=== PATIENT | male | born 1980 | race Caucasian/White ===

== ENCOUNTER 2018-10-20 00:23 | Emergency (ER) | payer MEDICAID ==
[~2018-10-20] VITALS: Ht 172.7 cm; Wt 172.0 kg
[2018-10-20 00:25] VITALS: BP 153/114
== END 2018-10-20 03:25 | disposition home or self-care (01) ==
LOC: ER 00:25
DX: F10.129 Alcohol abuse with intoxication, unspecified (principal); F11.10 Opioid abuse, uncomplicated; R10.9 Unspecified abdominal pain; R00.0 Tachycardia, unspecified; F12.90 Cannabis use, unspecified, uncomplicated; Y90.9 Presence of alcohol in blood, level not specified
CPT/HCPCS: 99284